=== PATIENT | male | born 1955 | race Caucasian/White ===

== ENCOUNTER 2020-07-24 06:54 | Outpatient (NON) | payer OTHER, SELFPAY ==
[2020-07-24 18:24] LABS: SARS-CoV-2 RNA PCR Negative
== END 2020-07-24 06:55 ==
PROVIDERS: PCP Family Medicine; Visit Provider Physician Assistant Medical
DX: Z20.828 Contact with and (suspected) exposure to other viral communicable diseases (principal)
CPT/HCPCS: 87635; C9803; U0003

== ENCOUNTER → 2021-01-01 06:54 | Outpatient (CLI) | payer OTHER, SELFPAY ==
--- NOTE | ~2021-01-01 | XR_ITS ---
EXAMINATION: XR lumbar spine 2-3V DATE: 01/01/2021 07:48 INDICATION: Low back pain TECHNIQUE: Anteroposterior and lateral views of the lumbar spine, and cone-down lateral view of the l umbosacral junction were obtained. COMPARISON: 03/10/2012 FINDINGS: There is no fracture. There is severe asymmetric loss of intervertebral disc space height o n the right at L2-3. Moderate to severe intervertebral disc space height loss is seen in the remainde r of the lumbar spine. The vertebral body heights are maintained. Small degenerative osteophytes proj ect from the anterior endplates of multiple vertebral bodies. 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 The bowel gas pattern is normal. IMPRESSION: 1. Severe lumbar spondylosis with slight worsening but no acute findings. Reviewed, dictated and finalized at location A. H EXAMINER
== END ==
PROVIDERS: PCP Family Medicine; Visit Provider Physician Assistant
DX: M47.896 Other spondylosis, lumbar region (principal)
CPT/HCPCS: 72100

== ENCOUNTER → 2021-06-16 07:39 | Outpatient (CLI) | payer MEDICARE, SELFPAY ==
--- NOTE | ~2021-06-16 | MR_ITS ---
EXAMINATION: MR lumbar spine wo con DATE: 06/16/2021 08:33 INDICATION: Lumbago with left-sided sciatica. TECHNIQUE: Magnetic resonance imaging (MRI) of the lumbar spine was performed without intravenous con trast. Sequences included sagittal T2-weighted FSE, sagittal T2-weighted FS FSE, sagittal T1-weighted FSE, and axial T2-weighted FSE. COMPARISON: Lumbar spine MRI 05/30/2012 FINDINGS: There is 10 degrees levoscoliosis of lumbar spine. There is 3 mm retrolisthesis of L5 on S1 . There is mild chronic anterior wedging of T11-L2 vertebral bodies. There are Schmorl's nodes at mos t levels. There is moderately decreased disc height at T12-L1, L1-L2, and L3-L4 and severely decrease d disc height at L2-L3, L4-L5 and L5-S1 with endplate remodeling. There is interbody fusion at L2-L3. The distal spinal cord signal intensity is normal. The conus medullaris is at T12-L1. The following disc levels are specifically discussed: T12-L1: The disc is bulging and has an annular fissure. There is mild bilateral facet joint osteoarth ritis. There is moderate right and mild left neural foraminal stenosis. There is mild central canal s tenosis. L1-L2: The disc is bulging and has an annular fissure. There is mild bilateral facet joint osteoarthr itis. There is moderate right and mild left neural foraminal stenosis. There is mild central canal st enosis. L2-L3: There is mild bilateral facet joint osteoarthritis. There is mild right and moderate left neur al foraminal stenosis. There is mild central canal stenosis. L3-L4: The disc is bulging and has an annular fissure. There is severe bilateral facet joint osteoart hritis. There is moderate bilateral neural foraminal stenosis. There is severe central canal stenosis . L4-L5: The disc is bulging and has an annular fissure. There is severe bilateral facet joint osteoart hritis. There is moderate bilateral neural foraminal stenosis. There is mild central canal stenosis. There is moderate stenosis of left lateral recess. L5-S1: The disc is bulging and has an annular fissure. There is severe bilateral facet joint osteoart hritis. There is moderate bilateral neural foraminal stenosis. There is mild central canal stenosis. IMPRESSION: 1. Severe lumbar spondylosis, worsened from 05/30/2012. 2. Lumbar levoscoliosis. Reviewed, dictated and finalized at location A.
== END ==
PROVIDERS: PCP Family Medicine; Visit Provider Physician Assistant
DX: M54.41 Lumbago with sciatica, right side (principal); M54.42 Lumbago with sciatica, left side; M47.896 Other spondylosis, lumbar region
CPT/HCPCS: 72148

== ENCOUNTER 2024-10-05 07:52 | Outpatient (CLI) | payer MEDICARE, SELFPAY ==
[2024-10-05 13:43] LABS: Hematocrit 43.7 % (42.0-52.0); Hemoglobin 13.2 g/dL (14.0-18.0); Mean Corpuscular HGB Conc 30.2 g/dl (32-36); Mean Corpuscular Volume 82.6 fl (80-100); Mean Platelet Volume 10.4 fl (7.4-10.4); Platelet Count Result 263 k/mm3 (150-375); Red Blood Count 5.29 M/mm3 (4.6-6.20); Red Cell Distribution Width 18.3 % (11.5-14.5); White Blood Count 6.1 K/mm3 (4.5-10.0)
[2024-10-05 13:57] LABS: Alanine Aminotransferase 24 U/L (6-50); Albumin Level 4.4 g/dL (3.5-5.1); Alkaline Phosphatase 57 U/L (38-126); Anion Gap 2 mmol/L (4-12); Aspartate Amino Transferase 50 U/L (17-59); Bilirubin,Total 0.6 mg/dL (0.2-1.3); Blood Urea Nitrogen 18 mg/dL (9-20); Calcium 9.7 mg/dL (8.4-10.2); Carbon Dioxide 32 mmol/L (22-30); Chloride 101 mmol/L (98-107); Cholesterol 110 mg/dL (0-200); Estimated Glomerular Filt Rate > 60; Glucose 97 mg/dL (65-110); HDL Direct 50 mg/dL; Potassium 5.4 mmol/L (3.4-5.0); Sodium 135 mmol/L (137-145); Triglycerides 74 mg/dL (<150)
[2024-10-05 14:13] LABS: LDL Cholesterol Direct 41 mg/dL
[2024-10-05 14:37] LABS: Creatinine Urine 67.9 mg/dL
[2024-10-05 14:41] LABS: MALB Creatinine Ratio 11.2 mg/g (0-30); Microalbumin Urine Random 7.6 mg/L (0-16.7)
[2024-10-05 16:15] LABS: Hemoglobin A1C 6.5 % (<5.7)
== END 2024-10-05 07:53 | disposition home or self-care (01) ==
LOC: ANHGOSHLAB 07:55
PROVIDERS: PCP Family Medicine; Visit Provider Nurse Practitioner
DX: E11.65 Type 2 diabetes mellitus with hyperglycemia (principal); E78.2 Mixed hyperlipidemia; E03.9 Hypothyroidism, unspecified; Z79.899 Other long term (current) drug therapy
CPT/HCPCS: 36415; 80053; 80061; 82043; 83036; 84443; 85027

== ENCOUNTER 2024-10-09 07:52 | Outpatient (CLI) | payer MEDICARE, SELFPAY ==
[2024-10-09 19:19] LABS: Potassium 4.6 mmol/L (3.4-5.0)
--- OUTSIDE RECORDS SUMMARY | 2024-10-15 00:48 | XMS_ITS | Encounter Summary ---
Author Organization [facility] Address [address] [place] [address] Care Team Providers Care Long Term Care Social Worker Name Role Phone Serge Medrano MD Primary Care Provider [phone] Encounter Details Date Type Department Care Team (Latest Contact Info) Description 07/01/2021 1:00 PM CDT Telephone Check Up [facility] SPINE [facility] PAIN MANAGEMENT [address] [address] [place] [address] [facility] [address] [place] [address] Neurogenic claudication due to lumbar spinal stenosis (Primary Dx) Social History Tobacco Use Types Packs/Day Years Used Date Smoking Tobacco: Never Sex and Gender Information Value Date Recorded Sex Assigned at Not on file Gender Identity Not on file Sexual Orientation Not on file COVID-19 Exposure Response Date Recorded In the last month, have you been in contact with someone who was confirmed or suspected to have Coronavirus / COVID-19? No / Unsure 06/23/2021 8:36 AM CDT documented as of this encounter Progress Notes * Alexander Montalvo MD - 07/01/2021 1:36 PM CDT This encounter was completed via two-way synchronous audio only communication. Time spent by the provider delivering the care documented in this encounter 15 minutes. Patient expressed understanding that using technology outside of My [facility] has higher potential tointroduce privacy risks: Yes Patient's identity confirmed yes Patient gave verbal consent to have these services billed to their insurance and expressed understanding that co-insurance and deductible may apply: yes I had the pleasure of seeing Wallace today at my Neurosurgery Office at [facility]. Wallace is a 66 y.o. male who comes to my office today with complaints of continued lower extremity pain and back pain but has actually improved from what was already a fairly good state. He attributes this to him retiring from work. He no longer have to lift heavy objects on a daily basis. He is actually doing quite well and walking 8 to 9 miles per day.. No past medical history on file. No past surgical history on file. Social History Socioeconomic History ??? Marital status: Spouse name: Not on file ??? Number of children: Not on file ??? Years of education: Not on file ??? Highest education level: Not on file Occupational History ??? Not on file Tobacco Use ??? Smoking status: Never Smoker Vaping Use ??? Vaping Use: Never used Substance and Sexual Activity ??? Alcohol use: Not on file ??? Drug use: Not on file ??? Sexual activity: Not on file Other Topics Concern ??? Not on file Social History Narrative ??? Not on file Social Determinants of Health Financial Resource Strain: ??? Difficulty of Paying Living Expenses: Food Insecurity: ??? Worried About Running Out of Food in the Last Year: ??? Ran Out of Food in the Last Year: Transportation Needs: ??? Lack of Transportation (Medical): ??? Lack of Transportation (Non-Medical): Physical Activity: ??? Days of Exercise per Week: ??? Minutes of Exercise per Session: Stress: ??? Feeling of Stress : Social Connections: ??? Frequency of Communication with Friends and Family: ??? Frequency of Social Gatherings with Friends and Family: ??? Attends Shinto Services: ??? Active Member of Clubs or Organizations: ??? Attends Club or Organization Meetings: ??? Marital Status: Intimate Partner Violence: ??? Fear of Current or Ex-Partner: ??? Emotionally Abused: ??? Physically Abused: ??? Sexually Abused: No family history on file. Current Outpatient Medications on File Prior to Visit Medication Sig Dispense Refill ??? metFORMIN (GLUCOPHAGE) 1,000 mg tablet Take 500 mg by mouth 4 times daily. ??? omeprazole (PriLOSEC) 20 mg Capsule, Delayed Release(E.C.) Take 20 mg by mouth daily. ??? lisinopriL (PRINIVIL) 5 mg tablet Take 5 mg by mouth daily. ??? meloxicam (MOBIC) 15 mg tablet Take 15 mg by mouth daily. ??? atorvastatin (LIPITOR) 40 mg tablet Take 40 mg by mouth daily. ??? fluticasone propionate 113 mcg/actuation aero powdr breath act w/sensor Take by inhalation. ??? fluticasone propionate (FLONASE) 50 mcg/spray [place], Suspension nasal inhaler Administer 2 Sprays in each nostril daily. No current facility-administered medications on file prior to visit. No Known Allergies Review of Systems Physical Exam Diagnostic Data: The patient has had x-rays of the lumbar spine. He does show a slight scoliosis and multilevel degenerative disc disease. There is an autofusion again noted at L2-L3. He does have a slight listhesis at L3-4 that worsens with flexion.. ASSESSMENT: No diagnosis found. PLAN: Normal BMI Range: 18 & older: > or = 18.5 and < 25 There is no height or weight on file to calculate BMI. No orders of the defined types were placed in this encounter. TOBACCO COUNSELING Assessment and Plan: My assessment at this point is that Wallace is doing very well despite having multilevel lumbar spondylosis and stenosis that is significant at L3-4. He also has some listhesis atthis level. He may yet require surgery but I would definitely hold off on this for as long as possible. I would also exhaust conservative therapy prior to attempting surgical management. We will follow back up with repeat x-rays in 6 months to make sure the listhesis does not worsen. We would be happy to see him sooner if need be. I am glad he is doing well. Thank you. documented in this encounter Plan of Treatment Not on file documented as of this encounter Visit Diagnoses Diagnosis Neurogenic claudication due to lumbar spinal stenosis- Primary Spinal stenosis, lumbar region, with neurogenic claudication documented in this encounter Care Teams Long Term Care Social Worker Relationship Specialty Start Date End Date Serge Medrano MD [address] [place] [address] PCP - General Family Practice 06/23/21 documented as of this encounter
--- OUTSIDE RECORDS SUMMARY | 2024-10-15 00:48 | XMS_ITS | Encounter Summary ---
Author Organization [facility] Address [address] [place] [address] Care Team Providers Care Baker Doughnut Name Role Phone Serge Medrano MD Primary Care Provider [phone] Reason for Visit * Reason Comments LOW BACK PAIN Encounter Details Date Type Department Care Team (Late st Contact Info) Description 06/23/2021 9:00 AM CDT Office Visit [facility] SPINE [facility] PAIN MANAGEMENT [address] [address] [place] [address] [facility] [address] [place] [address] Neurogenic claudication due to lumbar [...] AM CDT documented as of this encounter Last Filed Vital Signs Vital Sign Reading Time Taken Comments Blood Pressure 124/84 06/23/2021 9:01 AM CDT Pulse - - Temperature - - Respiratory Rate - - Oxygen Saturation - - Inhaled Oxygen Concentration - - Weight 83.8 kg (184 lb 12.8 oz) 06/23/2021 9:01 AM CDT Height 182.9 cm (6') 06/23/2021 9:01 AM CDT Body Mass Index 25.06 06/23/2021 9:01 AM CDT documented in this encounter Progress Notes * Alexander Montalvo MD - 06/23/2021 9:19 AM CDT I had the pleasure of seeing Wallace today at my Neurosurgery Office at [facility]. Wallace is a 66 y.o. male who comes to my office today with complaints of low back pain and some leg lower extremitypain that has been worsening over the past year. It feels as though he is having numbness and dysesthesias in his legs with standing and walking. He however is doing quite well at present. And rates the pain as a 1 out of 10. On average it is a 3 out of 10. At its worst it can be 8 out of 10. It goes down both lower extremities into the faye and approximately an L4 distribution. It does give him difficulty with walking. He is still however able to walk 7 to 8 miles a day. He is not diabetic anddoes not smoke. He is presently on meloxicam. He has not tried physical therapy or wound care center consultant or injections.. No past medical history on file. No [...] Gatherings with Friends and Family: ??? Attends Adventism Services: ??? Active Member of Clubs or [...] inhalation. ??? fluticasone propionate (FLONASE) 50 mcg/spray [place], Suspension nasal inhaler Administer 2 Sprays in each nostril daily. No current facility-administered medications on file prior to visit. No Known Allergies Review of Systems Physical Exam Constitutional: Appearance: He is well-developed. HENT: Head: Normocephalic and atraumatic. Eyes: Conjunctiva/sclera: Conjunctivae normal. Pupils: Pupils are equal, round, and reactive to light. Pulmonary: Effort: Pulmonary effort is normal. Abdominal: Palpations: Abdomen is soft. Musculoskeletal: General: No tenderness. Normal range of motion. Cervical back: Normal range of motion and neck supple. Skin: General: Skin is warm and dry. Neurological: General: No focal deficit present. Mental Status: He is alert and oriented to person, place, and time. Cranial Nerves: No cranial nerve deficit. Sensory: No sensory deficit. Coordination: Coordination normal. Deep Tendon Reflexes: Reflexes normal. Comments: Strength 5 out of 5 throughout. Psychiatric: Behavior: Behavior normal. Thought Content: Thought content normal. Diagnostic Data: The patient has an MRI of the lumbar spine which shows multilevel lumbar degenerative disc disease that is quite significant. There is a slight levoscoliosis also noted.. There is anautofusion at L2-L3. There is severe stenosis at L3-L4. ASSESSMENT: Encounter Diagnosis Name Primary? Neurogenic claudication due to lumbar spinal stenosis Yes PLAN: Normal BMI Range: 18 & older: > or = 18.5 and < 25 Body mass index is 25.06 kg/m??. BMI within normal limits Orders Placed This Encounter ??? XR LUMBAR SPINE 4+ VW TOBACCO COUNSELING He is not a tobacco user. Assessment and Plan: My assessment at this point is that Wallace is suffering from neurogenic claudication due to severe lumbar stenosis at L3-L4. There may be some element of degenerative disc disease also noted. At this time he is simply doing too well to recommend anything other than conservativecare. I would tell him to start stretching and possibly yoga in addition to his exercise regimen. We will hold off on the Neurontin for now. He should continue the Mobic. I will follow up with him in3 months with x-rays. If he worsens we would be happy to see him sooner. I do appreciate be included in his care. I welcome any questions you may have. Thank you. documented in this encounter Plan of Treatment Not on file documented as of this encounter Results * XR LUMBAR SPINE 4+ VW (06/23/2021 9:53 AM CDT) Anatomical Region Laterality Modality Spine Computed Radiogr aphy 06/23/2021 9:53 AM CDT Impressions 06/23/2021 2:46 PM CDT IMPRESSION: ?? 1. Fusion of L2-3 disc space. 2. Lumbar spondylosis. 3. Anterolisthesis of L3 on L4 with flexion reduced in extension. 4. Levoscoliosis. DICTATION LOCATION: Location [address] [place] [address] Narrative 06/23/2021 2:46 PM CDT LUMBAR SPINE - FIVE VIEWS DATE: ??06/23/2021 9:53 AM HISTORY: Neurogenic claudication due to lumbar spinal stenosis. COMPARISON: No prior studies are available for comparison. FINDINGS: ??AP neutral, lateral flexion, lateral extension and lateral radiographs show fusion of L2-3 at the disc space level. Multilevel disc space narrowing is present. Vacuum clefts are present at L4-5 and L5-S1. Anterior subluxation of L3 on L4 is present with flexion reduced in extension. 5 mm of subluxation is present. There is levoscoliosis. Facet osteoarthritis is present throughout the lumbar spine. INCIDENTAL FINDINGS: ??None. Procedure Note Yaw Davalos MD - 06/23/2021 LUMBAR SPINE - FIVE VIEWS DATE: 06/23/2021 9:53 AM HISTORY: Neurogenic claudication due to lumbar spinal stenosis. COMPARISON: No prior studies are available for comparison. FINDINGS: AP neutral, lateral flexion, lateral extension and lateral radiographs show fusion of L2-3 at the disc space level. Multilevel disc space narrowing is present. Vacuum clefts are present at L4-5 and L5-S1. Anterior subluxation of L3 on L4 is present with flexion reduced in extension. 5 mm of subluxation is present. There is levoscoliosis. Facet osteoarthritis is present throughout the lumbar spine. INCIDENTAL FINDINGS: None. IMPRESSION: 1. Fusion of L2-3 disc space. 2. Lumbar spondylosis. 3. Anterolisthesis of L3 on L4 with flexion reduced in extension. 4. Levoscoliosis. DICTATION LOCATION: Location [address] [place] [address] Alexander Montalvo MD DIAGNOSTIC IMAGING O RDERABLES documented in this encounter Visit Diagnoses Diagnosis Neurogenic claudication due to lumbar spinal stenosis- Primary Spinal stenosis, lumbar region, with neurogenic claudication Neurogenic claudication due to lumbar spinal stenosis Spinal stenosis, lumbar region, with neurogenic claudication documented in this encounter Care Teams Baker Doughnut Relationship Specialty Start Date End Date Serge Medrano MD [address] [place] [address] PCP - General Family Practice 06/23/21 documented as of this encounter
--- OUTSIDE RECORDS SUMMARY | 2024-10-15 00:48 | XMS_ITS | Encounter Summary ---
Author Organization [facility] Address [address] [place] [address] Care Team Providers Care Fingerprint Clerk Name Role Phone Serge Medrano MD Primary Care Provider [phone] Encounter Details Date Type Department Care Team (Late st Contact Info) Description 06/23/2021 Abstract [facility] SPINE AND PAIN MANAGEMENT [address] [address] [place] [address] [facility] [address] [place], [place] [id number] Social History Tobacco Use Types Packs/Day Years [...] have Coronavirus / COVID-19? No / Unsure 06/20/2021 10:16 AM CDT documented as of this encounter Plan of Treatment Not on file documented as of this encounter Visit Diagnoses Not on filedocumented in this encounter Care Teams Fingerprint Clerk Relationship Specialty Start Date End Date Serge Medrano MD [address] [place] [address] PCP - General Family Practice 06/23/21 documented as of this encounter
--- OUTSIDE RECORDS SUMMARY | 2024-10-15 00:48 | XMS_ITS | Referral Summary ---
Author Organization [facility] Address [address] [place] [address] Care Team Providers Care Risk Control Field Representative Name Role Phone Luke Medrano MD Primary Care Provider [phone] Source Comments [facility],non-owned Affiliates and Associated Physician Practices is amultiple site organization consisting of ambulatory clinics and hospital sitesin [place], [place], [place] and [place]. This disclosure is being madepursuant to the Care Everywhere program and may not contain all information available regarding this patient. Last updated 18.[facility] Social History Tobacco Use Types Packs/Day Years Used Date Smoking Tobacco: Never Assessed Sex and Gender Information Value Date Recorded Sex Assigned at Not on file Gender Identity Not on file Sexual Orientation Not on file Last Filed Vital Signs Vital Sign Reading Time Taken Comments Blood Pressure - - Pulse - - Temperature - - Respiratory Rate - - Oxygen Saturation - - Inhaled Oxygen Concentration - - Weight 81.6 kg (180 lb) 09/22/2016 8:51 AM SALES REPRESENTATIVE GRAPHIC ART Height 182.9 cm (6') 09/14/2016 12:18 PM SALES REPRESENTATIVE GRAPHIC ART Body Mass Index 24.41 09/14/2016 12:18 PM SALES REPRESENTATIVE GRAPHIC ART Plan of Treatment Not on file Care Teams Risk Control Field Representative Relationship Specialty Start Date End Date Luke Medrano MD [address] [place] [address] PCP - General Family Medicine 09/11/16
--- OUTSIDE RECORDS SUMMARY | 2024-10-15 00:48 | XMS_ITS | Encounter Summary ---
Author Organization [facility] Address [address] Cruz: Epic Prelude ADT [place] [address] Care Team Providers Care Air Conditioning Manager Name Role Phone Unavailable Primary Care Provider Unavailabl e Encounter Details Date Type Department Care Team (Latest Contact Info) Description 06/20/2021 Travel Social History Tobacco Use Types Packs/Day Years [...]
--- OUTSIDE RECORDS SUMMARY | 2024-10-15 00:48 | XMS_ITS | Encounter Summary ---
Author Organization [facility] Address [address] Attn: Epic Prelude ADT [place] [address] Care Team Providers Care Interior Design Instructor Name Role Phone Serge Medrano MD Primary Care Provider [phone] Encounter Details Date Type Department Care Team (Latest Contact Info) Description 06/23/2021 Travel Social History Tobacco Use Types Packs/Day [...] on filedocumented in this encounter Care Teams Interior Design Instructor Relationship Specialty Start Date End Date Serge Medrano MD [address] [place] [address] PCP - General Family Practice 06/23/21 documented as of this encounter
--- OUTSIDE RECORDS SUMMARY | 2024-10-15 00:48 | XMS_ITS | Encounter Summary ---
Author Organization [facility] Address [address] [place] [address] Care Team Providers Care Senior Painter Name Role Phone Unavailable Primary Care Provider Unavailabl e Reason for Visit * MRI (Routine) - Closed Specialty Diagnoses / Procedures Referred By Roby mcallister Referred To Contact Diagnoses Back pain, unspecified back location, unspecified back pain laterality, unspecified chronicity Procedures [place] [address] [address] Referral ID Status Reason Start Date Expiration Date Visits Re quested Visits Authorized [id number] Closed 06/23/2021 07/24/2022 1 1 Encounter Details Date Type Department Care Team (Latest Contact Info) Description 06/16/2021 - 06/16/2021 11:59 PM CDT Hospital Encounter [facility] Imaging Services [facility] [id number] [place] [address] [place] [address] [facility] [address] [place] [address] Discharge Disposition: Home or Self Care Social History Tobacco Use Types Packs/Day Years Used Date Smoking Tobacco: Never Assessed Sex and Gender Information Value Date Recorded Sex Assigned at Not on file Gender Identity Not on file Sexual Orientation Not on file documented as of this encounter Plan of Treatment Not on file documented as of this encounter Procedures Procedure Name Priority Date/Time Associated Diagnosis Comments MRI PRIOR STUDY Routine 06/16/2021 12:00 AM CDT Back pain, unspecified back location, unspecified back pain laterality, unspecified chronicity documented in this encounter Results * MRI PRIOR STUDY (06/16/2021 12:00 AM CDT) Narrative 06/23/2021 8:28 AM CDT This exam was auto finalized to allow images to be scanned to PACS. Alexander Montalvo MD MR ORDERABLES documented in this encounter Visit Diagnoses Diagnosis Back pain, unspecified back location, unspecified back pain laterality, unspecified chronicity documented in this encounter
--- OUTSIDE RECORDS SUMMARY | 2024-10-15 00:48 | XMS_ITS | Clinical Summary ---
Author Organization [employer] [place] Address [address] [place] [address] Care Team Providers Care Quick Sketch Artist Name Role Phone Serge Medrano MD Primary Care Provider [phone] Allergies No known active allergies Medications Medication Sig Dispensed Refills Start Date End Date Status metFORMIN (GLUCOPHAGE) 1,000 mg tablet Take 500 mg by mouth 4 times daily. Active omeprazole (PriLOSEC) 20 mg Capsule, Delayed Release(E.C.) Take 20 mg by mouth daily. Active lisinopriL (PRINIVIL) 5 mg tablet Take 5 mg by mouth daily. Active meloxicam (MOBIC) 15 mg tablet Take 15 mg by mouth daily. Active atorvastatin (LIPITOR) 40 mg tablet Take 40 mg by mouth daily. Active fluticasone propionate 113 mcg/actuation aero powdr breath act w/sensor Take by inhalation. Activ e fluticasone propionate (FLONASE) 50 mcg/spray [place], Suspension nasal inhaler Administer 2 Sprays in each nostril daily. Active Active Problems Problem Noted Date Diagnosed Date Neurogenic claudication due to lumbar spinal serjio nosis 06/23/2021 Social History Tobacco Use Types Packs/Day Years [...] Mass Index 25.06 06/23/2021 9:01 AM CDT Plan of Treatment Health Maintenance Due Date Last Done Comments DTAP/TDAP/TD VACCINES (1 - Tdap) 1975 COLORECTAL SCREENING 2001 Colorectal Cancer Screening 2001 FIT-DNA Q 3 years 2001 FIT/FOBT Q 1 year 2001 Flex Sig/CT Colonography Q 5 years 2001 ZOSTER VACCINE (1 of 2) 2006 PNEUMOCOCCAL VACCINE 65+ YEARS (1 of 1 - PCV) 05/20/20 21 INFLUENZA VACCINE (#1) 2024 RSV VACCINE (60+ or ) (1 - 1-dose 75+ series) 2031 Care Teams Quick Sketch Artist Relationship Specialty Start Date End Date Serge Medrano MD [address] [place] [address] PCP - General Family Practice 06/23/21
--- OUTSIDE RECORDS SUMMARY | 2024-10-15 00:48 | XMS_ITS | Encounter Summary ---
Author Organization [facility] Address [address] [place] [address] Care Team Providers Care Manugrapher Name Role Phone Serge Medrano MD Primary Care Provider [phone] Encounter Details Date Type Department Care Team (Late st Contact Info) Description 06/23/2021 Abstract [facility] [address] [address] [place] [address] [facility] [address] [place], [place] [id number] Social History Tobacco Use Types Packs/Day Years [...] on filedocumented in this encounter Care Teams Manugrapher Relationship Specialty Start Date End Date Serge Medrano MD [address] [place] [address] PCP - General Family Practice 06/23/21 documented as of this encounter
--- OUTSIDE RECORDS SUMMARY | 2024-10-15 00:48 | XMS_ITS | Patient Health Summary ---
Author Organization [facility] [employer] Address [address] [place] [address] Care Team Providers Care Volunteer Specialist Name Role Phone Luke Medrano MD Primary Care Provider [phone] Note from [facility],non-owned Affiliates and Associated Physician Practices is amultiple site organization consisting of ambulatory clinics and hospital sitesin [place], [place], [place] and [place]. This disclosure is being madepursuant to the Care Everywhere program and may not contain all information available regarding this patient. Last updated 18.[facility] [employer] Social History Tobacco Use Types Packs/Day Years [...] 81.6 kg (180 lb) 09/22/2016 8:51 AM ELECTRONIC PUBLICATIONS SPECIALIST Height 182.9 cm (6') 09/14/2016 12:18 PM ELECTRONIC PUBLICATIONS SPECIALIST Body Mass Index 24.41 09/14/2016 12:18 PM ELECTRONIC PUBLICATIONS SPECIALIST Care Teams Volunteer Specialist Relationship Specialty Start Date End Date Luke Medrano MD [address] [place] [address] PCP - General Family Medicine 09/11/16
--- OUTSIDE RECORDS SUMMARY | 2024-10-15 00:48 | XMS_ITS | Encounter Summary ---
Author Organization [facility] Address [address] [place] [address] Care Team Providers Care Elementary School Counselor Name Role Phone Unavailable Primary Care Provider Unavailabl e Encounter Details Date Type Department Care Team (Late st Contact Info) Description 06/20/[address] [facility] SPINE [facility] PAIN MANAGEMENT [facility] [id number] [place] [address] [place] [address] [facility] [address] [place] [address] Social History Tobacco Use Types Packs/Day Years [...]
--- OUTSIDE RECORDS SUMMARY | 2024-10-15 00:48 | XMS_ITS | Encounter Summary ---
Author Organization [facility] Address [address] [place] [address] Care Team Providers Care Roll Line Operator Name Role Phone Serge Medrano MD Primary Care Provider [phone] Reason for Referral * MRI (Routine) - Closed Specialty Diagnoses / Procedures Referred By Contac t Referred To Contact Diagnoses Back pain, unspecified back location, unspecified back pain laterality, unspecified chronicity Procedures [place] [address] [address] Referral ID Status Reason Start Date Expiration Date Visits Re quested Visits Authorized [id number] Closed 06/23/2021 07/24/2022 1 1 Encounter Details Date Type Department Care Team (Late st Contact Info) Description 06/23/2021 Orders Only [facility] [address] [address] [place] [address] [facility] [address] [place] [address] Back pain, unspecified back location, unspecified back pain laterality, unspecified chronicity (Primary Dx) Social History Tobacco Use Types [...] documented as of this encounter Results * MRI PRIOR STUDY (06/16/2021 12:00 AM CDT) Narrative 06/23/2021 8:28 AM CDT This exam was auto finalized to allow images to be scanned to PACS. Alexander Montalvo MD MR ORDERABLES documented in this encounter Visit Diagnoses Diagnosis Back pain, unspecified back location, unspecified back pain laterality, unspecified chronicity Back pain, unspecified back location, unspecified back pain laterality, unspecified chronicity- Primary documented in this encounter Care Teams Roll Line Operator Relationship Specialty Start Date End Date Serge Medrano MD [address] [place] [address] PCP - General Family Practice 06/23/21 documented as of this encounter
--- OUTSIDE RECORDS SUMMARY | 2024-10-15 00:48 | XMS_ITS | Encounter Summary ---
Author Organization [facility] Address [address] [place] [address] Care Team Providers Care Envelope Maker Name Role Phone Serge Medrano MD Primary Care Provider [phone] Encounter Details Date Type Department Care Team (Latest Contact Info) Description 06/23/2021 9:42 AM CDT - 06/23/2021 11:59 PM CDT Hospital Encounter [facility] [address] [place] [address] [place] [address] [facility] [address] [place] [address] Discharge Disposition: Home or Self [...] AM CDT documented as of this encounter Medications at Time of Discharge Medication Sig Dispensed Refills Start Date End Date metFORMIN (GLUCOPHAGE) 1,000 mg tablet Take 500 mg by mouth 4 times daily. omeprazole (PriLOSEC) 20 mg Capsule, Delayed Release(E.C.) Take 20 mg by mouth daily. lisinopriL (PRINIVIL) 5 mg tablet Take 5 mg by mouth daily. meloxicam (MOBIC) 15 mg tablet Take 15 mg by mouth daily. atorvastatin (LIPITOR) 40 mg tablet Take 40 mg by mouth daily. fluticasone propionate 113 mcg/actuation aero powdr breath act w/sensor Take by inhalation. fluticasone propionate (FLONASE) 50 mcg/spray [place], Suspension nasal inhaler Administer 2 Sprays in each nostril daily. documented as of this encounter Plan of Treatment Not on file documented as of this encounter Procedures Procedure Name Priority Date/Time Associated Diagnosis Comments XR LUMBAR SPINE 4+ VW Routine 06/23/2021 9:53 AM CDT Neurogenic claudication due to lumbar spinal stenosis documented in this encounter Results * XR LUMBAR SPINE 4+ VW (06/23/2021 9:53 AM CDT) Anatomical Region Laterality Modality Spine Computed Radiogr aphy 06/23/2021 9:53 AM CDT Impressions 06/23/2021 2:46 PM CDT IMPRESSION: ?? 1. Fusion of L2-3 disc space. 2. Lumbar spondylosis. 3. Anterolisthesis of L3 on L4 with flexion reduced in extension. 4. Levoscoliosis. DICTATION LOCATION: Location [address] [place] [address] Narrative 06/23/2021 2:46 PM CDT LUMBAR SPINE [...] reduced in extension. 4. Levoscoliosis. DICTATION LOCATION: [address] Alexander Montalvo MD DIAGNOSTIC IMAGING O RDERABLES documented in this encounter Visit Diagnoses Diagnosis Neurogenic claudication due to lumbar spinal stenosis Spinal stenosis, lumbar region, with neurogenic claudication documented in this encounter Care Teams Envelope Maker Relationship Specialty Start Date End Date Serge Medrano MD [address] [place] [address] PCP - General Family Practice 06/23/21 documented as of this encounter
--- OUTSIDE RECORDS SUMMARY | 2024-10-15 00:48 | XMS_ITS | Encounter Summary ---
Author Organization [facility] Address [address] [place] [address] Care Team Providers Care Cleaner Name Role Phone Serge Medrano MD Primary Care Provider [phone] Encounter Details Date Type Department Care Team (Late st Contact Info) Description 06/26/2021 Abstract [facility] SPINE [facility] PAIN MANAGEMENT [address] [address] [place] [address] [facility] [address] [place], [place] [id number] Social History Tobacco Use Types Packs/Day Years [...] on filedocumented in this encounter Care Teams Cleaner Relationship Specialty Start Date End Date Serge Medrano MD [address] [address] PCP - General Family Practice 06/23/21 documented as of this encounter
--- OUTSIDE RECORDS SUMMARY | 2024-10-15 00:48 | XMS_ITS | Clinical Summary ---
Author Organization [facility] [employer] Address [address] [place] [address] Care Team Providers Care Integrative Medicine Physician Name Role Phone Luke Medrano MD Primary Care Provider [phone] Source Comments [facility] [employer],non-owned Affiliates and Associated Physician Practices is amultiple site organization consisting of ambulatory clinics and hospital sitesin [place], [place], [place] and [place]. This disclosure is being madepursuant to the Care Everywhere program and may not contain all information available regarding this patient. Last updated 18.[facility] [employer] Social History Tobacco Use Types Packs/Day Years [...] 81.6 kg (180 lb) 09/22/2016 8:51 AM LEGAL DOCUMENT SPECIALIST Height 182.9 cm (6') 09/14/2016 12:18 PM LEGAL DOCUMENT SPECIALIST Body Mass Index 24.41 09/14/2016 12:18 PM LEGAL DOCUMENT SPECIALIST Plan of Treatment Health Maintenance Due Date Last Done Comments COLOGUARD (AGES 45-75) - COL ON CA SCREENING 1956 COLON MONITORING 1956 COLONOSCOPY - COLON CA SCREENING 1956 CT COLONOGRAPHY - COLON CA SCREENING 1956 Colorectal Cancer Screening 1956 FIT - COLON CA SCREENING 1956 FLEX SIG - COLON CA SCREENING 1956 LIPID TESTING 1956 HEPATITIS C SCREENING 05/16/1974 DTAP/TDAP/TD VACCINES (1 - Tdap) 1975 ZOSTER VACCINE (1 of 2) 2006 PNEUMOCOCCAL VACCINE 65+ (1 of 1 - PCV) 2021 DEPRESSION SCREENING 10/25/2023 COVID-19 VACCINE (1 - 2023-2 5 season) 2024 INFLUENZA VACCINE (#1) 2024 Respiratory Syncytial Virus (RSV) Vaccine Pt: or over 60 yrs (1 - 1-dose 75+ series) 2031 HEPATITIS B VACCINE Aged Out No longe r eligible based on patient's age to complete this topic HIB VACCINE Aged Out No longer eligi ble based on patient's age to complete this topic HPV VACCINE Aged Out No longer eligi ble based on patient's age to complete this topic MENINGOCOCCAL VACCINE Aged Out No jeanne syed eligible based on patient's age to complete this topic Care Teams Integrative Medicine Physician Relationship Specialty Start Date End Date Luke Medrano MD [address] [place] [address] PCP - General Family Medicine 09/11/16
== END 2024-10-09 07:53 | disposition home or self-care (01) ==
LOC: ANHGOSHLAB 07:54
PROVIDERS: PCP Family Medicine; Visit Provider Family Medicine
DX: E87.5 Hyperkalemia (principal)
CPT/HCPCS: 36415; 84132

== ENCOUNTER 2025-02-05 08:06 | Outpatient (CLI) | payer OTHER, SELFPAY ==
--- OUTSIDE RECORDS SUMMARY | 2025-02-05 08:16 | XMS_ITS | Clinical Summary ---
Author Organization [facility] [place] Address [address] [place] [address] Care Team Providers Care Consultative Sales Associate Name Role Phone Luke Medrano MD Primary Care Provider [phone] Source Comments [facility],non-owned Affiliates and Associated Physician Practices is amultiple site organization consisting of ambulatory clinics and hospital sitesin [place], [place], [place] and [place]. This disclosure is being madepursuant to the Care Everywhere program and may not contain all information available regarding this patient. Last updated 18.[facility] [place] [employer] Social History Tobacco Use Types Packs/Day Years Used Date Smoking Tobacco: Never Assessed Sex and Gender Information Value Date Recorded Sex Assigned at Not on file Legal Sex Male 11:50 AM HALF BACKER Gender Identity Not on file Sexual Orientation Not on file Last Filed Vital Signs Vital Sign Reading Time Taken Comments Blood Pressure - - Pulse - - Temperature - - Respiratory Rate - - Oxygen Saturation - - Inhaled Oxygen Concentration - - Weight 81.6 kg (180 lb) 09/22/2016 8:51 AM HALF BACKER Height 182.9 cm (6') 09/14/2016 12:18 PM HALF BACKER Body Mass Index 24.41 09/14/2016 12:18 PM HALF BACKER Plan of Treatment Health Maintenance Due Date [...] 05/16/1974 DTAP/TDAP/TD VACCINES (1 - Tdap) 1975 PNEUMOCOCCAL VACCINE 50+ (1 of 1 - PCV) 2006 ZOSTER VACCINE (1 of 2) 2006 COVID-19 VACCINE (1 - 2023-2 5 season) 2024 DEPRESSION SCREENING 10/25/2024 INFLUENZA VACCINE (Season Ended) 2025 Respiratory Syncytial Virus (RSV) Vaccine Pt: or [...] patient's age to complete this topic MENINGOCOCCAL (Group B) VACC INE SHARED DECISION-MAKING Aged Out No longer eligibl e based on patient's age to complete this topic MENINGOCOCCAL GROUPS A/C/Y/W VACCINE Aged Out No longer eligible b ased on patient's age to complete this topic Insurance [employer] Care Teams Consultative Sales Associate Relationship Specialty Start Date End Date Luke Medrano MD [address] [place] [address] PCP - General Family Medicine 09/11/16
--- OUTSIDE RECORDS SUMMARY | 2025-02-05 08:16 | XMS_ITS | Referral Summary ---
Author Organization [facility] [address] Address [address] [place] [address] Care Team Providers Care Upset Operator Name Role Phone Chandana Thomas MD Primary Care Provider [phone] Allergies No known active allergies Medications atorvastatin (LIPITOR) 40 mg tablet Take 1 tablet (40 mg total) by mouth daily 4 Active azithromycin (ZITHROMAX) 250 mg tablet TAKE 2 TABLETS BY MOUTH TODAY, THEN TAKE 1 TABLET DAILY FOR 4 DAYS DIRECTED 4 Active fluticasone propionate (FLONASE) 50 mcg/actuation nasal spray SPRAY 2 SPRAYS INTO EACH NOSTRIL ONCE DAILY 4 Active lisinopriL (PRINIVIL,ZESTR [place]) 10 mg tablet Take 0.5 tablets (5 mg total) by mouth daily 4 Active meloxicam (MOBIC) 15 mg tablet Take 1 tablet (15 mg total) by mouth daily 4 Active metFORMIN XR (GLUCOPHAGE XR) 500 mg 24 hr tablet Take 2 tablets (1,000 mg total) by mouth 2 (two) times a day 4 Active omeprazole (PriLOSEC) 20 mg capsule Take by mouth daily 4 Active benzonatate (TESSALON) 200 mg capsuleIndicati ons:Acute cough Take 1 capsule (200 mg total) by mouth 3 (three) times a day as needed for cough keep tessalon out of reach of children, especially children under the age of 10, due to possible serious risk such as if ingested by children under the age of 10. 30 capsule 4 Active Active Problems Problem Noted Date Diagnosed Date Neurogenic claudication due to lumbar spinal serjio nosis 06/23/2021 Social History Tobacco Use Types Packs/Day Years Used Date Smoking Tobacco: Never Assessed Sex and Gender Information Value Date Recorded Sex Assigned at Not on file Legal Sex Male 5:37 AM HOURLY SHIFT Gender Identity Not on file Sexual Orientation Not on file Last Filed Vital Signs Vital Sign Reading Time Taken Comments Blood Pressure 132/74 02/04/2024 3:07 PM CDT Pulse 78 02/04/2024 3:07 PM CDT Temperature 36.8 C (98.3 F) 02/04/2024 3:07 PM CDT Respiratory Rate 18 02/04/2024 3:07 PM CDT Oxygen Saturation 95% 02/04/2024 3:07 PM CDT Inhaled Oxygen Concentration - - Weight 82.6 kg (182 lb) 02/04/2024 3:07 PM CDT Height 180.3 cm (5' 11 ) 02/04/2024 3:07 PM CDT Body Mass Index 25.38 02/04/2024 3:07 PM CDT Plan of Treatment Not on file Insurance MEDICARE [facility] Address: [address] [address] [place] [address] [employer] Care Teams Upset Operator Relationship Specialty Start Date End Date Chandana Thomas MD [facility] [address] [id number] PCP - General Family Medicine 02/04/24
--- OUTSIDE RECORDS SUMMARY | 2025-02-05 08:16 | XMS_ITS | Clinical Summary ---
Author Organization [facility] [address] [place] Address [address] [place] [address] Care Team Providers Care Rail Setter Name Role Phone Chandana Thomas MD Primary Care Provider [phone] Allergies No known active allergies Medications atorvastatin [...] on file Legal Sex Male 5:37 AM [employer]UNITY [employer] Gender Identity Not on file Sexual Orientation Not on file Obstetrics History Last Filed Vital Signs Vital Sign Reading [...] 02/04/2024 3:07 PM CDT Plan of Treatment Health Maintenance Due Date Last Done Comments Colon Cancer Screening-Colonoscopy 1956 Depression Screening 1956 Fall Risk Assessment 1956 Hepatitis C Screening 1956 Prostate Cancer Screening-PSA 1956 Hepatitis B Screening 1974 Abdominal Aortic Aneurysm (A AA) Screen 2021 Well Visit 65+ 2021 Pneumococcal vaccine 65+ (2 of 2 - PPSV23) 12/19/2022 12/19/2021 Covid-19 Vaccine (2023-2 5 season) 2024 08/16/2023, 08/10/2022, 03/14/2022, Additional history exists Influenza Vaccine (#1) 2024 , 06/22/2022, 07/20/2021, Additional history exists DTaP/Tdap/Td Vaccine (3 - Td or Tdap) 06/15/2029 06/15/2019, 06/15/2019 Zoster Vaccine Completed 03/26/2022, 12/24, 08/15/2017 Insurance MEDICARE [employer] Care Teams Rail Setter Relationship Specialty Start Date End Date Chandana Thomas MD [facility] [address] [address] PCP - General Family Medicine 02/04/24
--- OUTSIDE RECORDS SUMMARY | 2025-02-05 08:16 | XMS_ITS | Clinical Summary ---
Author Organization [employer] [place] Address [address] [place] [address] Care Team Providers Care Diagnostic Technologist Name Role Phone Serge Medrano MD Primary Care Provider [phone] Allergies No known active allergies Medications metFORMIN (GLUCOPHAGE) 1,000 mg tablet Take 500 [...] powdr breath act w/sensor Take by inhalation. Active fluticasone propionate (FLONASE) 50 mcg/spray [place], Suspension nasal inhaler Administer 2 Sprays in each nostril daily. Active Active Problems Problem Noted Date Diagnosed Date Neurogenic claudication due to lumbar spinal serjio nosis 06/23/2021 Social History Tobacco Use Types Packs/Day Years Used Date Smoking Tobacco: Never Sex and Gender Information Value Date Recorded Sex Assigned at Not on file Legal Sex Male 10:07 AM CDT Gender Identity Not on file Sexual Orientation [...] Flex Sig/CT Colonography Q 5 years 2001 PNEUMOCOCCAL VACCINE 50+ YEARS (1 of 1 - PCV) 05/20/20 06 ZOSTER VACCINE (1 of 2) 2006 INFLUENZA VACCINE (#1) 2024 RSV VACCINE (60+ or ) (1 - 1-dose 75+ series) 2031 Insurance MEDICARE PART A AND B [employer] Care Teams Diagnostic Technologist Relationship Specialty Start Date End Date Serge Medrano MD [address] [place] [address] PCP - General Family Practice 06/23/21
[2025-02-05 18:56] LABS: Hematocrit 40.8 % (42.0-52.0); Hemoglobin 12.5 g/dL (14.0-18.0); Mean Corpuscular HGB Conc 30.6 g/dl (32-36); Mean Corpuscular Hemoglobin 26.5 pg (26-34); Mean Corpuscular Volume 86.4 fl (80-100); Mean Platelet Volume 10.3 fl (7.4-10.4); Platelet Count Result 251 k/mm3 (150-375); Red Blood Count 4.72 M/mm3 (4.6-6.20); Red Cell Distribution Width 15.2 % (11.5-14.5); White Blood Count 6.2 K/mm3 (4.5-10.0)
[2025-02-05 20:06] LABS: Alanine Aminotransferase 26 U/L (6-50); Albumin Level 4.3 g/dL (3.5-5.1); Alkaline Phosphatase 58 U/L (38-126); Anion Gap 9 mmol/L (4-12); Aspartate Amino Transferase 42 U/L (17-59); Bilirubin,Total 0.5 mg/dL (0.2-1.3); Blood Urea Nitrogen 15 mg/dL (9-20); Calcium 9.3 mg/dL (8.4-10.2); Carbon Dioxide 29 mmol/L (22-30); Chloride 99 mmol/L (98-107); Cholesterol 89 mg/dL (0-200); Estimated Glomerular Filt Rate > 60; Glucose 95 mg/dL (65-110); HDL Direct 39 mg/dL; Potassium 4.7 mmol/L (3.4-5.0); Sodium 137 mmol/L (137-145); Triglycerides 62 mg/dL (<150)
[2025-02-05 20:17] LABS: LDL Cholesterol Direct 33 mg/dL
[2025-02-05 20:37] LABS: Thyroid Stimulating Hormone 0.483 uIU/mL (0.465-4.680)
[2025-02-05 22:04] LABS: Hemoglobin A1C 6.2 % (<5.7)
== END 2025-02-05 08:07 | disposition home or self-care (01) ==
PROVIDERS: PCP Family Medicine; Visit Provider Family Medicine
DX: E11.65 Type 2 diabetes mellitus with hyperglycemia (principal); E78.2 Mixed hyperlipidemia; E66.3 Overweight; I10 Essential (primary) hypertension; Z79.899 Other long term (current) drug therapy
CPT/HCPCS: 36415; 80053; 80061; 83036; 84443; 85027

== ENCOUNTER 2025-04-06 07:27 | Outpatient (CLI) | payer OTHER, SELFPAY ==
--- NOTE | ~2025-04-06 | MR_ITS ---
MRI of the lumbar spine Clinical History: Back pain Technique: Axial T2-weighted images, and sagittal T1-weighted, T2-weighted, and and T2 fat-sat images were acquired. COMPARISON: 06/16/2021 Findings: There is straightening of the normal lumbar lordosis. No acute fracture or subluxation evid ent. Stable mild chronic loss of height of L1 and L2 vertebral bodies. Stable fusion across the L2-L3 disc space. There are type I Modic changes about the L1-L2 and L3-L4 disc spaces in particular. No s uspicious bone marrow signal abnormality seen. Note is made of severe facet arthropathy and mild disc bulge resulting in moderate canal stenosis and mild compression of the spinal cord at the T10-T11 level. At L1-L2, there is severe degenerative disc narrowing. There is disc bulge and mild to moderate facet arthropathy. There is right lateral recess stenosis with minimal central canal stenosis. There is se rosy right neural foraminal narrowing, and moderate left neural foraminal narrowing. At L2-L3, there is partial fusion across the disc space with moderate to advanced facet arthropathy. There is mild central canal stenosis with right lateral recess stenosis. There is severe bilateral ne ural foraminal compromise, right worse than left. At L3-L4, there is severe degenerative disc narrowing. Disc bulge and severe facet arthropathy result in severe spinal canal stenosis/thecal sac compression. There is severe bilateral neural foraminal c ompress. At L4-L5, there is severe degenerative disc narrowing. There is mild disc bulge and severe facet arth ropathy. No leah central canal stenosis. There is severe bilateral neural foraminal narrowing. At L5-S1, there is severe degenerative disc narrowing. There is severe facet arthropathy. No central canal stenosis. There is severe bilateral neural foraminal narrowing. Paravertebral soft tissues are unremarkable. Impression: Severe degenerative spondylosis throughout the lumbar spine, as detailed above, with severe spinal ca nal stenosis at L3-L4, as well as diffuse severe degenerative disc narrowing and severe neural forami nal narrowing bilaterally. Severe degenerative spondylosis at T10-T11, as detailed above. Reviewed, dictated and finalized at location M. Impression: Severe degenerative spondylosis throughout the lumbar spine, as detailed above, with severe spinal canal stenosis at L3-L4, as well as diffuse severe degenera tive disc narrowing and severe neural foraminal narrowing bilaterally. Severe degenerative spondylosis at T10-T11, as detailed above.
== END 2025-04-06 07:28 | disposition home or self-care (01) ==
LOC: MICIMG 07:27
PROVIDERS: PCP Family Medicine; Visit Provider Orthopaedic Surgery
DX: M48.062 Spinal stenosis, lumbar region with neurogenic claudication (principal); M47.896 Other spondylosis, lumbar region
CPT/HCPCS: 72148

== ENCOUNTER 2025-06-13 02:37 | Day surgery (SDC) | payer OTHER, SELFPAY ==
--- OUTSIDE RECORDS SUMMARY | 2025-03-13 03:00 | XMS_ITS ---
Author Organization [facility] Address [address] [place] [address] Care Team Providers Care Wafer Production Worker Name Role Phone Toshia Cazares Primary Care Provider Rodney Barger [phone] ALLERGIES No Known Allergies RESULTS Component Value [...] neurogenic claudication (M48.062) Active confirmed Neurogenic claudication ([id number]) VITAL SIGNS BMI 22.73 kg/m2 03/13/2025 Height 71 in 03/13/2025 Weight 163 lbs 03/13/2025 Encounters Encounter Location Date Provider Diagnosis [facility], [address] [place] [address] 03/13/2025 Rodney Sanchez Other low back pain [...]
--- OUTSIDE RECORDS SUMMARY | 2025-04-09 10:37 | XMS_ITS ---
Author Organization [facility] Address [address] [facility] [address] [place] [address] Care Team Providers Care Engineering Team Supervisor Name Role Phone Toshia Cazares Primary Care Provider UnavailRodney Morrow Unavailable [phone] REASON FOR REFERRAL Reason Eval and Treat [...] Notes Problem Lumbar radiculopathy (M54.16) Active confirmed Encounters Encounter Location Date Provider Diagnosis [facility], [address] [facility] [address] [place] [address] 04/09/2025 Rodney Sanchez PLAN OF TREATMENT Referrals Referral Date Details Eval and Treat RFA e beHeath Consultation Request Notes Referral Date Referring Provider Referred Provider Not katherine 04/10/2025 Rodney Sanchez Chad Eval and Treat RFA eval
[2025-05-31 13:11] VITALS: BMI 22.4
--- OUTSIDE RECORDS SUMMARY | 2025-06-13 02:39 | XMS_ITS | Clinical Summary ---
Author Organization [facility] Address [address] [place] [address] Care Team Providers Care Sock Folder Name Role Phone Luke Medrano MD Primary Care Provider [phone] Source Comments [facility],non-owned Affiliates and Associated Physician Practices is amultiple site organization consisting of ambulatory clinics and hospital sitesin [place], [place]. This disclosure is being madepursuant to the Care Everywhere program and may not contain all information available regarding this patient. Last updated 18.[facility] Social History Tobacco Use Types Packs/Day Years Used Date Smoking Tobacco: Never Assessed Sex and Gender Information Value Date Recorded Sex Assigned at Not on file Legal Sex Male 11:50 AM ANIMAL CARE TECHNICIAN Gender Identity Not on file Sexual Orientation Not on file Last Filed Vital Signs Vital Sign Reading Time Taken Comments Blood Pressure - - Pulse - - Temperature - - Respiratory Rate - - Oxygen Saturation - - Inhaled Oxygen Concentration - - Weight 81.6 kg (180 lb) 09/22/2016 8:51 AM ANIMAL CARE TECHNICIAN Height 182.9 cm (6') 09/14/2016 12:18 PM ANIMAL CARE TECHNICIAN Body Mass Index 24.41 09/14/2016 12:18 PM ANIMAL CARE TECHNICIAN Plan of Treatment Health Maintenance Due Date [...] season) 2024 DEPRESSION SCREENING 10/25/2024 INFLUENZA VACCINE (#1) 2025 Respiratory Syncytial Virus (RSV) Vaccine Pt: [...] complete this topic Insurance [employer] Care Teams Sock Folder Relationship Specialty Start Date End Date Luke Medrano MD [address] [place] [id number] PCP - General Family Medicine 09/11/16
--- OUTSIDE RECORDS SUMMARY | 2025-06-13 02:39 | XMS_ITS | Patient Health Record ---
Author Organization [facility] Address [address] [place] [address] Care Team Providers Care Clerical And Administrative Workers Name Role Phone Toshia Cazares Primary Care Provider Rodney Barger Unavailable [phone] ALLERGIES No Known Allergies RESULTS Component Value Reference Range Notes MRI : Lumbar without contras t Reviewed date:03/30/2025 09:40:40 AM Interpretation:approved Performing Lab: Notes/Report: approved X ray : Lumbar Spine 3 views , AP, Lateral, Spot Reviewed date:03/13/2025 10:17:04 AM Interpretation: Performing Lab: Notes/Report: REASON FOR REFERRAL Reason Eval and Treat RFA e be Diagnosis 1 Lumbar radiculopathy (M54.16) Referral [facility] Referring Provider First Name Rodney Referring Provider Last Name Laura Referring Provider Speciality Orthopedic Surgery Referred Provider Heath Green Referral Priority Routine MEDICATIONS Medication SIG (Take, Route, Fr equency, Duration) Notes Start Date End Date Status Atorvastatin Calcium Active Fluticasone Furoate Active Lisinopril Active Meloxicam Active metFORMIN HCl Active Omeprazole Active SOCIAL HISTORY Tobacco Use: Social History [...] neurogenic claudication (M48.062) Active confirmed Neurogenic claudication (589726875) Problem Lumbar radiculopathy (M54.16) Active confirmed VITAL SIGNS Height 71 in 03/13/2025 Weight 163 lbs 03/13/2025 BMI 22.73 kg/m2 03/13/2025 Encounters Encounter Location Date Provider Diagnosis [facility], [address] [facility] [address] [place] [address] 03/13/2025 Rodney Sanchez Other low back pain M54.59 [facility], [address] [facility] [address] [place] [address] 04/09/2025 Rodney Sanchez ASSESSMENTS Encounter Date Diagnosis Assessment Notes Treatment Notes Treatment Clinical Notes 03/13/2025 Other low back pain (ICD-10 - M54.59) PLAN OF TREATMENT No Information Insurance Providers Payer Name Payer Address Payer Phone Subscriber Number Group Number Insured Name Patient Relationship to Insured Coverage Start Date [facility]age End Date [facility] [address] [place] [address] [id number] Wallace Pascual Self - patient is the insured MEDICAL (GENERAL) HISTORY Medical History History ICD Code Type 2 Diabetes Surgical History Surgery Date(Month/Year) Right Shoulder Hospitalization History Reason Date(Month/Year) As per above.
--- OUTSIDE RECORDS SUMMARY | 2025-06-13 02:39 | XMS_ITS | Clinical Summary ---
Author Organization [facility] Address [address] [place] [address] Care Team Providers Care Surveyor Helper Name Role Phone Serge Medrano MD Primary Care Provider [phone] Allergies No known active allergies Medications metFORMIN [...] inhalation. Active fluticasone propionate (FLONASE) 50 mcg/spray [place], Suspension nasal inhaler Administer 2 Sprays in [...] (1 of 2) 2006 INFLUENZA VACCINE (#1) 2025 RSV VACCINE (60+ or ) (1 - 1-dose 75+ series) 2031 Insurance MEDICARE PART A AND B [place] [employer] INSURANCE Care Teams Surveyor Helper Relationship Specialty Start Date End Date Serge Medrano MD [address] [place] [address] PCP - General Family Practice 06/23/21
--- OUTSIDE RECORDS SUMMARY | 2025-06-13 02:39 | XMS_ITS | Clinical Summary ---
Author Organization [facility] [address] Address [address] [place] [address] Care Team Providers Care Solar Design Engineer Name Role Phone Chandana Thomas MD Primary Care Provider [phone] Allergies No known active allergies Medications atorvastatin [...] on file Legal Sex Male 5:37 AM BLOOD TYPER Gender Identity Not on file Sexual Orientation [...] 3:07 PM CDT Height 180.3 cm (5' 11) 02/04/2024 3:07 PM CDT Body Mass Index 25.38 02/04/2024 3:07 PM CDT Plan of Treatment Health Maintenance Due Date Last Done Comments Colon Cancer Screening-Colonoscopy 1956 Depression Screening 1956 Fall Risk Assessment 1956 Hepatitis C Screening 1956 Prostate Cancer Screening-PSA 1956 Hepatitis B Screening 1974 Abdominal Aortic Aneurysm (A AA) Screen 2021 Well Visit 65+ 2021 Pneumococcal vaccine 65+ (2 of 2 - PCV20 or PCV21) 12/19/2022 12/19/2021 Covid-19 Vaccine (2023-2 5 season) 2024 08/16/2023, 08/10/2022, 03/14/2022, Additional history exists Influenza Vaccine (#1) 2025 , 06/22/2022, 07/20/2021, Additional history exists DTaP/Tdap/Td Vaccine (3 - Td or Tdap) 06/15/2029 06/15/2019, 06/15/2019 Zoster Vaccine Completed 03/26/2022, 12/24, 08/15/2017 Insurance MEDICARE [employer] Care Teams Solar Design Engineer Relationship Specialty Start Date End Date Chandana Thomas MD [facility] [facility] [place] [address] PCP - General Family Medicine 02/04/24
[2025-06-13 06:09] VITALS: BP 129/83; PULSE 75; RESP 18; TEMP 36.6; O2SAT 99; BMI 22.5
[2025-06-13] MEDS: LACTATED RINGERS 1,000 ML 150 ML IV CONT (06:31)
--- NOTE | 2025-06-13 07:05 | WPDANESEPPF ---
Anes - Initial Pre Proc Eval Procedure: Operation Date: 06/13/25 07:30 Proposed Procedures p Screening Colonoscopy - Jose Maldonado MD Date/Time: 06/13/25 07:05 Surgeon: Jose Maldonado MD Pre Op Diagnosis: Screening Patient Data Age: 70 Gender: M Height: 1.8 m Weight: 73.2 kg Last Vital Signs Temp 36.6 C 06/13/25 06:09 Pulse 75 06/13/25 06:09 Resp 18 06/13/25 06:09 BP 129/83 06/13/25 06:09 Pulse Ox 99 06/13/25 06:09 O2 Del Method Room Air 06/13/25 06:09 Allergies Allergy/AdvReac Type Severity Reaction Status Date / Time No Known Allergies Allergy Verified 06/13/25 06:15 Home Medications ?Medication ?Instructions ?Recorded ?Confirmed ?Type lisinopril 10 mg tablet See Rx Instructions .Route 06/05/24 06/13/25 Rx .COMPLEX #45 tabs alprazolam 0.25 mg tablet 0.25 mg PO DAILY PRN anxiety #90 06/27/24 06/13/25 Rx tabs fluticasone propionate 50 2 spray intranasal DAILY #48 grams 07/03/24 06/13/25 Rx mcg/actuation nasal spray,suspension (Allergy Relief (fluticasone)) meloxicam 15 mg tablet See Rx Instructions .Route 07/24/24 06/13/25 Rx .COMPLEX PRN arthrits #90 tabs sildenafil 50 mg tablet 50 mg PO DAILY PRN sexual activity 08/24/24 05/31/25 Rx #72 tabs ferrous sulfate 325 mg (65 mg 325 mg PO DAILY #90 tabs 09/11/24 06/13/25 Rx iron) tablet atorvastatin 20 mg tablet (Lipitor) 20 mg PO QHS #90 tabs 03/20/25 06/13/25 Rx omeprazole 20 mg capsule,delayed See Rx Instructions .Route 03/20/25 06/13/25 Rx release .COMPLEX #90 caps metformin 500 mg tablet,extended See Rx Instructions .Route 04/06/25 06/13/25 Rx release 24 hr .COMPLEX #360 tabs semaglutide 1 mg/dose (4 mg/3 mL) 1 mg (0.75 mL) subcut WEEKLY #9 mL 05/17/25 06/13/25 Rx subcutaneous pen injector (Ozempic) Laboratory Tests 06/13/25 06:29 POC Capillary Glucose 110 H mg/dl (65-105) Patient hx anesthesia problems: none Family hx anesthesia problems: none Results Review: All pre-operative results and documents have been reviewed as part of the pre-operative evaluation. [facility] Past Medical History Medical History (Updated 06/13/25 @ 07:06 by Aki Renee MD) Diabetes HTN (hypertension) Surgical History Surgical History History of shoulder surgery Family History Family History Mother Hypertension Family history of cardiovascular disease Sibling Family history of cardiovascular disease Father Family history of cardiovascular disease Acute myocardial infarction, Onset Age: 52 Grandparent Malignant neoplasm of prostate, Onset Age: 90 Social History Social History Smoking status: Never smoker Second hand tobacco smoke exposure: No Alcohol intake: current Drinks per week: 3 Substance use type: does not use Lack of Transportation: No Lack of Food: Never True Current Housing: I Have Housing Concerned About Future Housing: No Difficulty Paying Gas/Electric Bills: No Difficulty Paying for Meds: No Currently Unemployed: No Education: High School Diploma/GED Difficulty w/ Childcare or Family Care: No Living arrangements: with family Spiritual care concerns: No Anes - Eval Final PreProcedure Day of Procedure 06/13/25 07:05 Patient weight: normal Heart: regular rate and rhythm Lungs: clear to auscultation Airway: Mallampati scale class II Neurological: alert and oriented Last oral intake: >/= 8 hours ASA classification: II Emergent: no Anesthetic plan: proceed Anesthesia type and monitoring: general GIVS and standard monitoring Results Review: All pre-operative results and documents have been reviewed as part of the pre-operative evaluation. Informed Consent: The patient's anesthetic plan and its attendant risks and benefits were discussed with the patient/family/POA. Questions were solicited and answers provided to the satisfaction of the patient/family/POA.
--- NOTE | 2025-06-13 07:36 | PM.IMHP ---
H&P: HPI History of Present Illness Date/Time: 06/13/25 07:36 Chief Complaint: screening colonoscopy Narrative: This is the patient's 2nd colonoscopy. There are no GI symptoms and there is no family history of colorectal cancer. Review of Systems Review of Systems: All systems reviewed & are unremarkable except as noted in HPI and below PMFSH Past Medical History Medical History (Updated 06/13/25 @ 07:06 by Aki Renee MD) Diabetes HTN (hypertension) Surgical History Surgical History History of shoulder surgery Family History Family History Mother Hypertension Family history of cardiovascular disease Sibling Family history of cardiovascular disease Father Family history of cardiovascular disease Acute myocardial infarction, Onset Age: 52 Grandparent Malignant neoplasm of prostate, Onset Age: 90 Social History Social History Smoking status: Never smoker Second hand tobacco smoke exposure: No Alcohol intake: current Drinks per week: 3 Substance use type: does not use Lack of Transportation: No Lack of Food: Never True Current Housing: I Have Housing Concerned About Future Housing: No Difficulty Paying Gas/Electric Bills: No Difficulty Paying for Meds: No Currently Unemployed: No Education: High School Diploma/GED Difficulty w/ Childcare or Family Care: No Living arrangements: with family Spiritual care concerns: No Meds Home Medications and Allergies Home Medications ?Medication ?Instructions ?Recorded ?Confirmed ?Type lisinopril 10 mg tablet See Rx Instructions .Route 06/05/24 06/13/25 Rx .COMPLEX #45 tabs alprazolam 0.25 mg tablet 0.25 mg PO DAILY PRN anxiety #90 06/27/24 06/13/25 Rx tabs fluticasone propionate 50 2 spray intranasal DAILY #48 grams 07/03/24 06/13/25 Rx mcg/actuation nasal spray,suspension (Allergy Relief (fluticasone)) meloxicam 15 mg tablet See Rx Instructions .Route 07/24/24 06/13/25 Rx .COMPLEX PRN arthrits #90 tabs sildenafil 50 mg tablet 50 mg PO DAILY PRN sexual activity 08/24/24 05/31/25 Rx #72 tabs ferrous sulfate 325 mg (65 mg 325 mg PO DAILY #90 tabs 09/11/24 06/13/25 Rx iron) tablet atorvastatin 20 mg tablet (Lipitor) 20 mg PO QHS #90 tabs 03/20/25 06/13/25 Rx omeprazole 20 mg capsule,delayed See Rx Instructions .Route 03/20/25 06/13/25 Rx release .COMPLEX #90 caps metformin 500 mg tablet,extended See Rx Instructions .Route 04/06/25 06/13/25 Rx release 24 hr .COMPLEX #360 tabs semaglutide 1 mg/dose (4 mg/3 mL) 1 mg (0.75 mL) subcut WEEKLY #9 mL 05/17/25 06/13/25 Rx subcutaneous pen injector (Adap.tvempRecordant) Allergies Allergy/AdvReac Type Severity Reaction Status Date / Time No Known Allergies Allergy Verified 06/13/25 06:15 Vital Signs Vital Signs - 24 hr 06/13/25 06:09 Temperature 97.9 F Pulse Rate 75 Respiratory Rate 18 Blood Pressure 129/83 Pulse Oximetry 99 Oxygen Delivery Room Air Exam Const: General: cooperative and healthy appearing Resp: Effort & Inspection: normal respiratory effort and able to speak in complete sentences Auscultation: clear to auscultation bilaterally Cardio: Rate: regular rate Rhythm: regular rhythm GI: Inspection: normal to inspection GI Palp: No No hepatosplenomegaly present Auscultation: normal bowel sounds Rectal Exam: deferred Skin: General skin exam: normal color Psych: Appearance: grossly normal Mental Status: mental status grossly normal Assessment and Plan Assessment and plan (1) Screening for colon cancer: Code(s): Z12.11 - Encounter for screening for malignant neoplasm of colon Status: Acute Assessment and Plan: The patient is deemed a good candidate for the procedure. Consent signed. Will proceed.
[2025-06-13 07:54] VITALS: BP 120/85; PULSE 68; RESP 19; O2SAT 100
[2025-06-13 08:04] VITALS: BP 129/83; PULSE 63; RESP 16; O2SAT 100
[2025-06-13 08:24] VITALS: BP 127/87; PULSE 62; RESP 16; O2SAT 100
== END 2025-06-13 08:26 | disposition home or self-care (01) ==
PROVIDERS: PCP Family Medicine; Referring Provider Family Medicine; Visit Provider Internal Medicine Gastroenterology
PROC: 0DJD8ZZ Inspection of Lower Intestinal Tract, Via Natural or Artificial Opening Endoscopic (ICD-10-PCS; CPT 45378; principal; 2025-06-13 07:30)
DX: Z12.11 Encounter for screening for malignant neoplasm of colon (principal); E11.9 Type 2 diabetes mellitus without complications; I10 Essential (primary) hypertension; Z79.84 Long term (current) use of oral hypoglycemic drugs; Z79.85 Long-term (current) use of injectable non-insulin antidiabetic drugs; Z98.890 Other specified postprocedural states; Z80.42 Family history of malignant neoplasm of prostate; Z82.49 Family history of ischemic heart disease and other diseases of the circulatory system
CPT/HCPCS: G0105; 82948; J2003; J2704; J7120

== ENCOUNTER 2025-07-31 08:07 | Outpatient (CLI) | payer OTHER, SELFPAY ==
--- OUTSIDE RECORDS SUMMARY | 2025-03-13 03:00 | XMS_ITS ---
Author Organization [facility] Address [address] [place] [address] Care Team Providers Care Missile Facilities Repairer Name Role Phone Toshia Cazares Primary Care Provider Rodney Barger [phone] ALLERGIES No Known Allergies RESULTS Component Value [...] Question Answer Notes Are you a nonsmoker PROBLEMS Problem Type ICD Code Onset Dates Problem Status W/U Status Risk SNOMED Code Notes Problem Lumbar stenosis with neurogenic claudication (M48.062) Active confirmed Neurogenic claudication (192116029) VITAL SIGNS BMI 22.73 kg/m2 03/13/2025 Height 71 in 03/13/2025 Weight 163 lbs 03/13/2025 Encounters Encounter Location Date Provider Diagnosis [facility] [address] [place] [address] 03/13/2025 Rodney Sanchez Other low back pain M54.59 ASSESSMENTS Encounter Date Diagnosis Assessment Notes Treatment Notes Treatment Clinical Notes 03/13/2025 Other low back pain (ICD-10 - M54.59) PLAN OF TREATMENT No Information Progress Notes * Examination Category Sub-Category Detail Notes X-Ray LUMBAR X-RAY: AP and lateral v iews of the lumbar spine were obtained today. They demonstrate advanced disc degeneration from L1 to S1, with diffuse facet arthropathy. The L3-4 level stands out as most dominant as far as disc degenerative changes
--- OUTSIDE RECORDS SUMMARY | 2025-04-09 10:37 | XMS_ITS ---
Author Organization [facility] , Address [address] [place] [address] Care Team Providers Care Entry Level Account Representative Name Role Phone Toshia Cazares Primary Care Provider UnavailRodney Morrow Unavailable [phone] REASON FOR REFERRAL Reason Eval and Treat [...] Lumbar radiculopathy (M54.16) Active confirmed Lumbar radiculopathy ([id number]) Encounters Encounter Location Date Provider Diagnosis [facility], [address] [facility] [address] [place] [address] 04/09/2025 Rodney Sanchez PLAN OF TREATMENT Referrals Referral Date Details Eval and Treat RFA e beHeath Consultation Request Notes Referral Date Referring Provider Referred Provider Not katherine 04/10/2025 Rodney Sanchez Chad Eval and Treat RFA eval
--- OUTSIDE RECORDS SUMMARY | 2025-07-31 08:15 | XMS_ITS | Patient Health Record ---
Author Organization [facility] Address [address] [place] [address] Care Team Providers Care Hand Cell Tuber Name Role Phone Toshia Cazares Primary Care Provider Rodney Barger Unavailable [phone] ALLERGIES No Known Allergies RESULTS Component Value [...] neurogenic claudication (M48.062) Active confirmed Neurogenic claudication (289956504) Problem Lumbar radiculopathy (M54.16) Active confirmed Lumbar radiculopathy (738413818) VITAL SIGNS Height 71 in 03/13/2025 Weight 163 lbs 03/13/2025 BMI 22.73 kg/m2 03/13/2025 Encounters Encounter Location Date Provider Diagnosis [facility], [address] [place] [address] 03/13/2025 Rodney Sanchez Other low back pain M54.59 [facility], [address] [place] [address] 04/09/2025 Rodney Sanchez ASSESSMENTS Encounter Date Diagnosis Assessment Notes Treatment Notes Treatment Clinical Notes 03/13/2025 Other low back pain (ICD-10 - M54.59) PLAN OF TREATMENT No Information Insurance Providers Payer Name Payer Address Payer Phone Subscriber Number Group Number Insured Name Patient Relationship to Insured Coverage Start Date Coverage End Date [facility] PPO [facility] [address] [place] [address] [id number] Wallace Pascual Self - patient is the insured MEDICAL (GENERAL) HISTORY Medical History History ICD Code Type 2 Diabetes Surgical History Surgery Date(Month/Year) Right Shoulder Hospitalization History Reason Date(Month/Year) As per above.
--- OUTSIDE RECORDS SUMMARY | 2025-07-31 08:15 | XMS_ITS | Clinical Summary ---
Author Organization [facility] Address [address] [place] [address] Care Team Providers Care Electrical Accessories Ii Assembler Name Role Phone Serge Medrano MD Primary Care Provider [phone] Allergies No known active allergies Medications metFORMIN [...] inhalation. Active fluticasone propionate (FLONASE) 50 mcg/spray [place], Suspension nasal inhaler Administer 2 Sprays in [...] 2031 Insurance MEDICARE PART A AND B [place] [employer] INSURANCE Care Teams Electrical Accessories Ii Assembler Relationship Specialty Start Date End Date Serge Medrano MD [address] [place] [address] PCP - General Family Practice 06/23/21
--- OUTSIDE RECORDS SUMMARY | 2025-07-31 08:15 | XMS_ITS | Clinical Summary ---
Author Organization [facility] Address [address] [place] [address] Care Team Providers Care Sand Mill Operator Facing Sand Name Role Phone Luke Medrano MD Primary Care Provider [phone] Source Comments [facility],non-owned Affiliates and Associated Physician Practices is amultiple site organization consisting of ambulatory clinics and hospital sitesin [place], [place], [place] and [place]. This disclosure is being madepursuant to the Care Everywhere program and may not contain all information available regarding this patient. Last updated 18.[facility] Social History Tobacco Use Types Packs/Day Years Used Date Smoking Tobacco: Never Assessed Sex and Gender Information Value Date Recorded Sex Assigned at Not on file Legal Sex Male 11:50 AM INTERNAL GRINDER Gender Identity Not on file Sexual Orientation Not on file Last Filed Vital Signs Vital Sign Reading Time Taken Comments Blood Pressure - - Pulse - - Temperature - - Respiratory Rate - - Oxygen Saturation - - Inhaled Oxygen Concentration - - Weight 81.6 kg (180 lb) 09/22/2016 8:51 AM INTERNAL GRINDER Height 182.9 cm (6') 09/14/2016 12:18 PM INTERNAL GRINDER Body Mass Index 24.41 09/14/2016 12:18 PM INTERNAL GRINDER Plan of Treatment Health Maintenance Due Date [...] 2006 ZOSTER VACCINE (1 of 2) 2006 DEPRESSION SCREENING 10/25/2024 COVID-19 VACCINE (1 - 2023-2 5 season) 2025 INFLUENZA VACCINE (#1) 2025 Respiratory Syncytial Virus [...] complete this topic Insurance ANTHEM Care Teams Sand Mill Operator Facing Sand Relationship Specialty Start Date End Date Luke Medrano MD [address] [place] [id number] PCP - General Family Medicine 09/11/16
--- OUTSIDE RECORDS SUMMARY | 2025-07-31 08:15 | XMS_ITS | Clinical Summary ---
Author Organization 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 [address] [facility] [place] [address] PCP - General Family Medicine 02/04/24
[2025-07-31 13:03] LABS: Hematocrit 38.3 % (42.0-52.0); Hemoglobin 11.9 g/dL (14.0-18.0); Mean Corpuscular HGB Conc 31.1 g/dl (32-36); Mean Corpuscular Hemoglobin 26.7 pg (26-34); Mean Corpuscular Volume 86.1 fl (80-100); Platelet Count Result 259 k/mm3 (150-375); Red Blood Count 4.45 M/mm3 (4.6-6.20); White Blood Count 6.0 K/mm3 (4.5-10.0)
[2025-07-31 13:24] LABS: Alanine Aminotransferase 19 U/L (6-50); Albumin Level 4.1 g/dL (3.5-5.1); Alkaline Phosphatase 57 U/L (38-126); Anion Gap 7 mmol/L (4-12); Aspartate Amino Transferase 41 U/L (17-59); Bilirubin,Total 0.6 mg/dL (0.2-1.3); Blood Urea Nitrogen 15 mg/dL (9-20); Calcium 9.2 mg/dL (8.4-10.2); Carbon Dioxide 29 mmol/L (22-30); Chloride 98 mmol/L (98-107); Cholesterol 114 mg/dL (0-200); Estimated Glomerular Filt Rate > 60; Glucose 97 mg/dL (65-110); HDL Direct 45 mg/dL; Potassium 4.3 mmol/L (3.4-5.0); Sodium 134 mmol/L (137-145); Total Protein 6.8 g/dL (6.3-8.2); Triglycerides 96 mg/dL (<150)
[2025-07-31 14:00] LABS: Prostate Specific Antigen 0.6 ng/mL (< OR = 4.0); Thyroid Stimulating Hormone 0.627 uIU/mL (0.465-4.680)
[2025-07-31 14:45] LABS: Hemoglobin A1C 6.4 % (<5.7)
== END 2025-07-31 08:08 | disposition home or self-care (01) ==
PROVIDERS: PCP Family Medicine; Visit Provider Family Medicine
DX: F41.1 Generalized anxiety disorder (principal); Z79.899 Other long term (current) drug therapy; I10 Essential (primary) hypertension; E78.2 Mixed hyperlipidemia; E11.65 Type 2 diabetes mellitus with hyperglycemia; Z12.5 Encounter for screening for malignant neoplasm of prostate
CPT/HCPCS: 36415; 80053; 80061; 83036; 84153; 84443; 85027; G0103

== ENCOUNTER 2025-08-16 14:52 | Outpatient (CLI) | payer OTHER, SELFPAY ==
--- NOTE | ~2025-08-16 | XR_ITS ---
EXAMINATION: XR abdomen/kub 1V, 08/16/2025 15:09 CDT HISTORY: Dysuria, looking for kidney stones, pain x 2 days COMPARISON: No comparisons available. Technique: 3 view. Findings: Moderate fecal content, no dilated bowel loops No free air. No abnormal calcifications No acute osseous abnormality. Impression: 1. No acute abnormality. Reviewed, dictated and finalized at location P. Impression: 1. No acute abnormality.
== END 2025-08-16 14:53 | disposition home or self-care (01) ==
LOC: GOSHIMG 14:52
PROVIDERS: PCP Family Medicine; Visit Provider Family Medicine
DX: R30.0 Dysuria (principal)
CPT/HCPCS: 74018

== ENCOUNTER 2025-08-16 14:55 | Outpatient (NON) | payer OTHER, SELFPAY ==
--- OUTSIDE RECORDS SUMMARY | 2025-03-13 03:00 | XMS_ITS ---
Author Organization [facility] Address [address] [place] [address] Care Team Providers Care Police Aide Name Role Phone KofisharminToshia tena Primary Care Provider Rodney Barger Unavailable [phone] ALLERGIES No Known Allergies RESULTS Component Value [...] neurogenic claudication (M48.062) Active confirmed Neurogenic claudication (953588269) VITAL SIGNS BMI 22.73 kg/m2 03/13/2025 Height 71 in 03/13/2025 Weight 163 lbs 03/13/2025 Encounters Encounter Location Date Provider Diagnosis [facility] [address] [place] [address] 03/13/2025 Rodney Sanchez Other low back pain [...] (Dictated but not read. Signed electronically by secretary of police to expedite) LV/alexandro &nbsp <b>ATTENDING ADDENDUM:</b> &nbsp Mr. Pascual is a 69-year-old gentleman who presents with a primary complaint of what sounds like neurogenic claudication type back pain. In the past, he has had numbness and tingling in his legs with walking.
--- OUTSIDE RECORDS SUMMARY | 2025-04-09 10:37 | XMS_ITS ---
Author Organization [facility] , Address [address] [place] [address] Care Team Providers Care Business Solutions Architect Name Role Phone Toshia Cazares Primary Care Provider UnavailRodney Morrow Unavailable [phone] REASON FOR REFERRAL Reason Eval and Treat [...] Lumbar radiculopathy (M54.16) Active confirmed Lumbar radiculopathy (357565932) Encounters Encounter Location Date Provider Diagnosis [facility], [address] [facility] [address] [place] [address] 04/09/2025 Rodney Sanchez PLAN OF TREATMENT Referrals Referral Date Details Eval and Treat RFA e beHeath Consultation Request Notes Referral Date Referring Provider Referred Provider Not katherine 04/10/2025 Rodney Sanchez Chad Eval and Treat RFA eval
--- OUTSIDE RECORDS SUMMARY | 2025-08-16 16:01 | XMS_ITS | Clinical Summary ---
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
--- OUTSIDE RECORDS SUMMARY | 2025-08-16 16:01 | XMS_ITS | Clinical Summary ---
Author Organization [facility] Address [address] [place] [address] Care Team Providers Care Parallel Computing Software Engineer Name Role Phone Luke Medrano MD Primary Care Provider [phone] Source Comments [facility],non-owned Affiliates and Associated Physician Practices is amultiple site organization consisting of ambulatory clinics and hospital sitesin [place], [place] and [place]. This disclosure is being madepursuant to the Care Everywhere program and may not contain all information available regarding this patient. 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 Gender Identity Not on file Sexual Orientation Not on file Last Filed Vital Signs Vital Sign Reading Time Taken Comments Blood Pressure - - Pulse - - Temperature - - Respiratory Rate - - Oxygen Saturation - - Inhaled Oxygen Concentration - - Weight 81.6 kg (180 lb) 09/22/2016 8:51 AM HEADING MACHINE OPERATOR Height 182.9 cm (6') 09/14/2016 12:18 PM HEADING MACHINE OPERATOR Body Mass Index 24.41 09/14/2016 12:18 PM HEADING MACHINE OPERATOR Plan of Treatment Health Maintenance Due Date [...] complete this topic Insurance ANTHEM Care Teams Parallel Computing Software Engineer Relationship Specialty Start Date End Date Luke Medrano MD [address] [place] [id number] PCP - General Family Medicine 09/11/16
--- OUTSIDE RECORDS SUMMARY | 2025-08-16 16:01 | XMS_ITS | Clinical Summary ---
Author Organization [facility] Address [address] [place] [address] Care Team Providers Care Division Operations Manager Name Role Phone Serge Medrano MD Primary Care Provider [phone] Allergies No known active allergies Medications metFORMIN [...] inhalation. Active fluticasone propionate (FLONASE) 50 mcg/spray [place], Suspension nasal inhaler Administer 2 Sprays in [...] 2031 Insurance MEDICARE PART A AND B [place] [employer] INSURANCE Care Teams Division Operations Manager Relationship Specialty Start Date End Date Serge Medrano MD [address] [place] [address] PCP - General Family Practice 06/23/21
--- OUTSIDE RECORDS SUMMARY | 2025-08-16 16:01 | XMS_ITS | Patient Health Record ---
Author Organization [facility] Address [address] [place] [address] Care Team Providers Care Freezer Assistant Name Role Phone Toshia Cazares Primary Care Provider Rodney Barger Unavailable [phone] ALLERGIES No Known Allergies RESULTS Component Value [...] neurogenic claudication (M48.062) Active confirmed Neurogenic claudication (724063120) Problem Lumbar radiculopathy (M54.16) Active confirmed Lumbar radiculopathy (395503032) VITAL SIGNS Height 71 in 03/13/2025 Weight 163 lbs 03/13/2025 BMI 22.73 kg/m2 03/13/2025 Encounters Encounter Location Date Provider Diagnosis [facility], [address] [place] [address] 03/13/2025 Rodney Sanchez Other low back pain M54.59 [facility], [address] [place] [address] 04/09/2025 Rodney Sanchez ASSESSMENTS Encounter Date Diagnosis [...] &nbsp KDR/mkd PLAN OF TREATMENT No Information Insurance Providers Payer Name Payer Address Payer Phone Subscriber Number Group Number Insured Name Patient Relationship to Insured Coverage Start Date Coverage End Date [facility] [address] [place] [address] [phone] [id number] Wallace Pascual Self - patient is the insured MEDICAL (GENERAL) HISTORY Medical History History ICD Code Type 2 Diabetes Surgical History Surgery Date(Month/Year) Right Shoulder Hospitalization History Reason Date(Month/Year) As per above.
== END 2025-08-16 14:56 | disposition home or self-care (01) ==
LOC: ANHGOSHLAB 14:56
PROVIDERS: PCP Family Medicine; Visit Provider Family Medicine
DX: R30.0 Dysuria (principal)
CPT/HCPCS: 87077; 87086; 87186

== ENCOUNTER 2025-08-27 11:55 | Outpatient (NON) | payer OTHER, SELFPAY ==
--- OUTSIDE RECORDS SUMMARY | 2025-03-13 02:00 | XMS_ITS ---
Author Organization [facility] Address [address] [place] [address] Care Team Providers Care Receivable Clerk Name Role Phone KofisharminToshia tena Primary Care Provider Rodney Barger Unavailable [phone] ALLERGIES No Known Allergies RESULTS Component Value Reference Range Notes MRI : Lumbar without contras t Reviewed date:03/30/2025 09:40:40 AM Interpretation:approved Performing Lab: Notes/Report: approved X ray : Lumbar Spine 3 views , AP, Lateral, Spot Reviewed date:03/13/2025 10:17:04 AM Interpretation: Performing Lab: Notes/Report: REASON FOR VISIT Lumbar MEDICATIONS Medication SIG (Take, Route, Fr equency, Duration) Notes Start Date End Date Status Atorvastatin Calcium Active Fluticasone Furoate Active Lisinopril Active metFORMIN HCl Active Omeprazole Active Meloxicam Active SOCIAL HISTORY Tobacco Use: Social History Observation Description Date Details (start date - stop date) Never Smoker NA - NA Sex Assigned At : Social History Observation Description Sex Assigned At Unknown Tobacco Use/Smoking Question Answer Notes Are you a nonsmoker Section Notes: He is with three chi ldren. He consumes two alcoholic beverages per week. He denies drug or chemical addiction. He is retired. PROBLEMS Problem Type ICD Code Onset Dates Problem Status W/U Status Risk SNOMED Code Notes Problem Lumbar stenosis with neurogenic claudication (M48.062) Active confirmed Neurogenic claudication (267576128) VITAL SIGNS BMI 22.73 kg/m2 03/13/2025 Height 71 in 03/13/2025 Weight 163 lbs 03/13/2025 Encounters Encounter Location Date Provider Diagnosis [facility] [address] [place] [address] 03/13/2025 Rodney Sanchez Other low back pain M54.59 ASSESSMENTS Encounter Date Diagnosis Assessment Notes Treatment Notes Treatment Clinical Notes Section Notes 03/13/2025 Other low back pain (ICD-10 - M54.59) &nbsp 1. Low Back Pain &nbsp <b>PLAN:</b> I am going to send Mr. Pascual for an MRI of the lumbar spine. If he has significant stenosis, we would most likely consider epidural steroid injection versus recommending decompression. &nbsp KDR/mkd PLAN OF TREATMENT No Information Progress Notes * Examination Category Sub-Category Detail Notes Category Not es X-Ray LUMBAR X-RAY: AP and lateral v iews of the lumbar spine were obtained today. They demonstrate advanced disc degeneration from L1 to S1, with diffuse facet arthropathy. The L3-4 level stands out as most dominant as far as disc degenerative changes &nbsp <B>Physical Examination: </b> The patient is a well developed, well nourished 69-year-old male. He is 5' 11 tall and weighs 163 pounds. He appears his stated age. Mood is calm. Alert and oriented x 3. Gait: Smooth, able to toe and heel walk. ROM: He has diminished lumbar flexion and extension, which are painless. Spine Observation: No excessive lordosis or kyphosis, no scoliosis, and no scars or hair patches. Hips appear level. Palpation: Nontender. Neuro Exam: Lumbar Exam The patient demonstrates 5 over 5 strength in bilateral hip adductors, abductors, quadriceps, hamstrings, ankle dorsiflexion, plantar flexion, and EHL. Patellar and Achilles' reflexes are 1 bilaterally. There is no ankle clonus. Sensation is intact to pin prick throughout the lower extremities. Extremities: Hip/Knee Exam The patient's hips and knees have full, painless range of motion and are stable to manipulation bilaterally. Pulses: The dorsalis pedis pulse is palpable. There is no clubbing, cyanosis, or edema in the lower extremities. The skin is intact. &nbsp Special Tests: Straight leg raise is negative bilaterally. &nbsp Thank you for allowing us to participate in the care of your patient. &nbsp Sincerely, &nbsp Ursula Pagan, ANP &nbsp The patient was seen, physically examined and available imaging reviewed by Rodney Sanchez M.D. The diagnosis and treatment plan was decided by Dr. Sanchez. (Dictated but not read. Signed electronically by hydro operator to expedite) LV/aelxandro &nbsp <b>ATTENDING ADDENDUM:</b> &nbsp Mr. Pascual is a 69-year-old gentleman who presents with a primary complaint of what sounds like neurogenic claudication type back pain. In the past, he has had numbness and tingling in his legs with walking.
--- OUTSIDE RECORDS SUMMARY | 2025-04-09 09:37 | XMS_ITS ---
Author Organization [facility] Address [address] [place] [address] Care Team Providers Care Automobile Or Truck Rental Dispatcher Name Role Phone Toshia Cazares Primary Care Provider UnavailRodney Morrow Unavailable [phone] REASON FOR REFERRAL Reason Eval and Treat RFA e be Diagnosis 1 Lumbar radiculopathy (M54.16) Referral Organization [facility] Referring Provider First Name Rodney Referring Provider Last Name Laura Referring Provider Speciality Orthopedic Surgery Referred Provider Heath Green Referral Priority Routine REASON FOR VISIT SNN MRI Lumbar 04-06-25 PROBLEMS Problem Type ICD Code Onset Dates Problem Status W/U Status Risk SNOMED Code Notes Problem Lumbar radiculopathy (M54.16) Active confirmed Lumbar radiculopathy (252727601) Encounters Encounter Location Date Provider Diagnosis [facility] [address] [facility] [address] [place] [address] 04/09/2025 Rodney Sanchez PLAN OF TREATMENT Referrals Referral Date Details Eval and Treat RFA e beHeath Consultation Request Notes Referral Date Referring Provider Referred Provider Not kathreine 04/10/2025 Rodney Sanchez Chad Eval and Treat RFA eval
--- OUTSIDE RECORDS SUMMARY | 2025-08-27 13:23 | XMS_ITS | Clinical Summary ---
Author Organization [facility] Address [address] [place] [address] Care Team Providers Care Agriscience Technology Instructor Name Role Phone Serge Medrano MD Primary Care Provider [phone] Allergies No known active allergies Medications metFORMIN [...] inhalation. Active fluticasone propionate (FLONASE) 50 mcg/spray [place], Suspension nasal inhaler Administer 2 Sprays in [...] 2031 Insurance MEDICARE PART A AND B [place] [employer] INSURANCE Care Teams Agriscience Technology Instructor Relationship Specialty Start Date End Date Serge Medrano MD [address] [place] [address] PCP - General Family Practice 06/23/21
--- OUTSIDE RECORDS SUMMARY | 2025-08-27 13:23 | XMS_ITS | Clinical Summary ---
Author Organization [facility] [address] Address [address] [place] [address] Care Team Providers Care Glue Line Operator Name Role Phone Chandana Thomas MD Primary Care Provider [phone] Allergies No known active allergies Medications atorvastatin [...] on file Legal Sex Male 5:37 AM NURSE LIAISON Gender Identity Not on file Sexual Orientation [...] PCV20 or PCV21) 12/19/2022 12/19/2021 Covid-19 Vaccine (2024-2 6 season) 2025 08/16/2023, 08/10/2022, 03/14/2022, Additional history exists Influenza Vaccine (#1) 2025 , 06/22/2022, 07/20/2021, Additional history exists DTaP/Tdap/Td Vaccine (3 - Td or Tdap) 06/15/2029 06/15/2019, 06/15/2019 Zoster Vaccine Completed 03/26/2022, 12/24, 08/15/2017 Insurance MEDICARE [employer] Care Teams Glue Line Operator Relationship Specialty Start Date End Date Chandana Thomas MD [facility] [address] [address] PCP - General Family Medicine 02/04/24
--- OUTSIDE RECORDS SUMMARY | 2025-08-27 13:23 | XMS_ITS | Patient Health Record ---
Author Organization [facility] Address [address] [place] [address] Care Team Providers Care Receiving Supervisor Name Role Phone Toshia Cazares Primary Care Provider Rodney Barger Unavailable [phone] ALLERGIES No Known Allergies RESULTS Component Value [...] neurogenic claudication (M48.062) Active confirmed Neurogenic claudication (811871781) Problem Lumbar radiculopathy (M54.16) Active confirmed Lumbar radiculopathy (383132013) VITAL SIGNS Height 71 in 03/13/2025 Weight 163 lbs 03/13/2025 BMI 22.73 kg/m2 03/13/2025 Encounters Encounter Location Date Provider Diagnosis [facility], [address] [place] [address] 03/13/2025 Rodney Sanchez Other low back pain M54.59 [facility], [address] [place] [address] 04/09/2025 Rodney Sanchez ASSESSMENTS Encounter Date Diagnosis [...] Insured Coverage Start Date Coverage End Date [facility] [address] [place] [address] [id number] Wallace Pascual Self - patient is the insured MEDICAL (GENERAL) HISTORY Medical History History ICD Code Type 2 Diabetes Surgical History Surgery Date(Month/Year) Right Shoulder Hospitalization History Reason Date(Month/Year) As per above.
--- OUTSIDE RECORDS SUMMARY | 2025-08-27 13:23 | XMS_ITS | Clinical Summary ---
Author Organization [facility] [employer] Address [address] [place] [address] Care Team Providers Care Registration Clerk Name Role Phone Luke Medrano MD Primary Care Provider [phone] Source Comments [facility],non-owned Affiliates and Associated Physician Practices is amultiple site organization consisting of ambulatory clinics and hospital sitesin [place], [place], [place] and [place]. This disclosure is being madepursuant to the Care Everywhere program and may not contain all information available regarding this patient. 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 Gender Identity Not on file Sexual Orientation Not on file Last Filed Vital Signs Vital Sign Reading Time Taken Comments Blood Pressure - - Pulse - - Temperature - - Respiratory Rate - - Oxygen Saturation - - Inhaled Oxygen Concentration - - Weight 81.6 kg (180 lb) 09/22/2016 8:51 AM TEA BAG MACHINE TENDER Height 182.9 cm (6') 09/14/2016 12:18 PM TEA BAG MACHINE TENDER Body Mass Index 24.41 09/14/2016 12:18 PM TEA BAG MACHINE TENDER Plan of Treatment Health Maintenance Due Date [...] complete this topic Insurance ANTHEM Care Teams Registration Clerk Relationship Specialty Start Date End Date Luke Medrano MD [address] [place] [id number] PCP - General Family Medicine 09/11/16
== END 2025-08-27 11:56 | disposition home or self-care (01) ==
PROVIDERS: PCP Family Medicine; Visit Provider Family Medicine
DX: R30.0 Dysuria (principal)
CPT/HCPCS: 87077; 87086; 87186